=== PATIENT | female | born 2000 | race Caucasian/White ===

== ENCOUNTER 2023-05-07 13:41 | Day surgery (SDC) | payer OTHER ==
[2023-05-07 14:09] VITALS: BMI 32.1
[2023-05-07] MEDS ORDERED: hydrALAZINE 20 MG/ML VIAL SLOW IVP PRN (14:31)
[2023-05-07 15:26] LABS: Bilirubin Neg (Negative); Blood, Urine 25 (Negative); Clarity Cloudy (Clear); Glucose, Urine (Dipstick) Normal (Negative); Ketone, Urine Negative (Negative); Leukocyte 100 (Negative); Nitrite Negative (Negative); Protein, Urine (Dipstick) 15 mg/dl (Neg-Trace); Urobilinogen Normal mg/dL (Less than 2)
[2023-05-07 15:37] LABS: CAUTI Indications for Culture Pelvic or flank pain
[2023-05-07 15:38] LABS: Bacteria/HPF 3+ HPF (None Seen)
[2023-05-07 15:39] LABS: Mucous/LPF 2+ LPF (<2+); Urine Culture Reflex No No
[2023-05-09 13:46] LABS: Chlamydia by PCR, Vaginal Swab Not Detected (NotDetected); GC by PCR, Vaginal Swab Not Detected (NotDetected)
== END 2023-05-07 17:58 | disposition home or self-care (01) ==
LOC: CSHLD/OP 13:41
PROVIDERS: ATTEND Obstetrics & Gynecology
DX: O99.891 Other specified diseases and conditions complicating pregnancy (principal); R10.2 Pelvic and perineal pain; O99.212 Obesity complicating pregnancy, second trimester; E66.9 Obesity, unspecified; O23.592 Infection of other part of genital tract in pregnancy, second trimester; N89.8 Other specified noninflammatory disorders of vagina; O23.42 Unspecified infection of urinary tract in pregnancy, second trimester; N39.0 Urinary tract infection, site not specified; Z3A.25 25 weeks gestation of pregnancy
CPT/HCPCS: 81001; 87480; 87491; 87510; 87591; 87660; 99284

== ENCOUNTER 2023-06-06 11:21 | Day surgery (SDC) | payer OTHER ==
[2023-06-06 11:52] VITALS: BMI 31.6
[2023-06-06] MEDS ORDERED: hydrALAZINE 20 MG/ML VIAL SLOW IVP PRN (12:30)
[2023-06-06 13:34] LABS: Fetal Membranes Rupture No Membranes Rupture (No Rupture)
== END 2023-06-06 14:25 | disposition home or self-care (01) ==
LOC: CSHLD/OP 11:21
PROVIDERS: ATTEND Obstetrics & Gynecology
DX: O47.03 False labor before 37 completed weeks of gestation, third trimester (principal); Z3A.29 29 weeks gestation of pregnancy
CPT/HCPCS: 84112; 87480; 87510; 87660; 99283

== ENCOUNTER 2023-07-18 19:55 | Day surgery (SDC) | payer OTHER ==
[2023-07-18 20:25] VITALS: BMI 34.4
[2023-07-18] MEDS ORDERED: hydrALAZINE 20 MG/ML VIAL SLOW IVP PRN (20:39)
[2023-07-18] MEDS ORDERED: Ondansetron ODT 4 MG TAB PO PRN (22:02)
== END 2023-07-18 23:45 | disposition home or self-care (01) ==
LOC: CSHLD/OP 19:55
PROVIDERS: ATTEND Emergency Medicine
DX: O36.8130 Decreased fetal movements, third trimester, not applicable or unspecified (principal); O99.613 Diseases of the digestive system complicating pregnancy, third trimester; O99.283 Endocrine, nutritional and metabolic diseases complicating pregnancy, third trimester; O99.213 Obesity complicating pregnancy, third trimester; O26.93 Pregnancy related conditions, unspecified, third trimester; E86.0 Dehydration; R19.7 Diarrhea, unspecified; E66.9 Obesity, unspecified; Z79.899 Other long term (current) drug therapy
CPT/HCPCS: 76819; 87480; 87510; 87660

== ENCOUNTER 2023-07-31 22:45 | Day surgery (SDC) | payer OTHER ==
[2023-07-31] MEDS ORDERED: hydrALAZINE 20 MG/ML VIAL SLOW IVP PRN (22:53)
[2023-07-31 23:28] VITALS: BMI 32.9
[2023-07-31 23:47] LABS: Fetal Membranes Rupture No Membranes Rupture (No Rupture)
== END 2023-08-01 01:53 | disposition home or self-care (01) ==
LOC: CSHLD/OP 22:45
PROVIDERS: ATTEND Student in an Organized Health Care Education/Training Program
DX: O47.1 False labor at or after 37 completed weeks of gestation (principal); O99.343 Other mental disorders complicating pregnancy, third trimester; O09.30 Supervision of pregnancy with insufficient antenatal care, unspecified trimester; F53.0 Postpartum depression; Z79.899 Other long term (current) drug therapy; Z3A.37 37 weeks gestation of pregnancy
CPT/HCPCS: 84112; 87070; 87205; 87480; 87510; 87660; 99285

== ENCOUNTER 2023-08-09 01:40 | Day surgery (SDC) | payer OTHER ==
[2023-08-09 06:46] LABS: Fetal Membranes Rupture No Membranes Rupture (No Rupture)
== END 2023-08-09 06:27 | disposition home or self-care (01) ==
LOC: CSHLD/OP 01:40
PROVIDERS: ATTEND Family Medicine
DX: O47.1 False labor at or after 37 completed weeks of gestation (principal); O09.33 Supervision of pregnancy with insufficient antenatal care, third trimester; O99.213 Obesity complicating pregnancy, third trimester; O99.013 Anemia complicating pregnancy, third trimester; O99.343 Other mental disorders complicating pregnancy, third trimester; F32.A Depression, unspecified; Z3A.39 39 weeks gestation of pregnancy
CPT/HCPCS: 84112; 99284

== ENCOUNTER 2024-06-05 17:26 | Emergency (ER) | payer MEDICAID, OTHER ==
[2024-06-05 18:30] LABS: Bilirubin Neg (Negative); Blood, Urine 10 (Negative); Clarity Cloudy (Clear); Glucose, Urine (Dipstick) Normal (Negative); Ketone, Urine Negative (Negative); Leukocyte 100 (Negative); Nitrite Negative (Negative); Protein, Urine (Dipstick) 30 mg/dl (Neg-Trace); Specific Gravity, Urine 1.025 (1.005-1.030); Urobilinogen Normal mg/dL (Less than 2)
[2024-06-05 18:47] LABS: Bacteria/HPF 4+ HPF (None Seen); RBC/HPF 0-3 HPF (0-3)
[2024-06-05 18:49] LABS: CAUTI Indications for Culture Pelvic or flank pain
[2024-06-05 18:51] LABS: Urine Culture Reflex No No
[2024-06-05 19:07] LABS: #Basophils 0.02 10x3/uL (0.0-0.2); #Eosinophils 0.08 10x3/uL (0.0-0.5); #Monocytes 0.77 10x3/uL (0.0-1.1); %Basophils 0.2 % (0.0-2.0); %Eosinophils 0.9 % (0.0-6.0); %Lymphocytes 21.5 % (18.0-47.0); %Monocytes 8.6 % (0.0-10.0); %Neutrophils 68.6 % (40.0-75.0); ALT (SGPT) 25 U/L (8-55); AST (SGOT) 16 U/L (5-34); Albumin 4.1 g/dL (3.5-5.0); Alkaline Phosphatase 74 U/L (40-110); Anion Gap 11 mmol/L (10-20); BUN (Urea Nitrogen) 9 mg/dL (7.0-18.7); Bilirubin, Total 0.3 mg/dL (0.2-1.2); Calc. Creatinine Clearance 0 mL/min (70-130); Calcium 9.7 mg/dL (7.8-10.44); Carbon Dioxide 21 mmol/L (22-29); Chloride 107 mmol/L (98-107); Estimated GFR 116; Globulin 3.7 g/dL (2.4-3.5); Glucose 83 mg/dL (70-105); Hematocrit 39.4 % (34.9-44.5); Hemoglobin 12.5 g/dL (12.0-15.5); Mean Corpuscular HGB CONC 31.7 g/dL (32.0-36.0); Mean Corpuscular Hemoglobin 28.3 pg (27.0-33.0); Mean Corpuscular Volume 89.3 fL (81.6-98.3); Mean Platelet Volume 8.3 fL (7.4-10.4); Platelet Count 392 10x3/uL (150-450); Potassium 3.7 mmol/L (3.5-5.1); Protein, Total 7.8 g/dL (6.0-8.3); RBC Distribution Width 14.8 % (11.5-14.5); Red Blood Cell (RBC) Count 4.41 10x6/uL (3.90-5.03); Sodium 135 mmol/L (136-145); White Blood Cell (WBC) Count 8.9 10x3/uL (3.5-10.5)
== END 2024-06-05 19:34 | disposition home or self-care (01) ==
LOC: CSHERS 17:26
DX: O20.0 Threatened abortion (principal); O99.891 Other specified diseases and conditions complicating pregnancy; R82.71 Bacteriuria; O99.331 Smoking (tobacco) complicating pregnancy, first trimester; F17.290 Nicotine dependence, other tobacco product, uncomplicated; Z3A.01 Less than 8 weeks gestation of pregnancy
CPT/HCPCS: 36415; 76856; 80053; 81001; 84702; 85025; 86900; 86901

== ENCOUNTER 2024-06-07 13:58 | Emergency (ER) | payer OTHER | END 2024-06-07 16:25 | disposition home or self-care (01) | LOC: CSHERS 13:58 | DX: O20.0 Threatened abortion (principal); Z3A.00 Weeks of gestation of pregnancy not specified | CPT/HCPCS: 36415; 76856; 84702 ==